=== PATIENT | male | born 1960 | race Caucasian/White ===

== ENCOUNTER 2017-03-06 08:54 | Day surgery (SDC) | payer BC, OTHER ==
[2017-03-05 12:18] VITALS: BMI 40.1
[2017-03-06] MEDS ORDERED: LIDOCAINE HCL/PF 2% SDV 5ML VIAL ONE (10:50)
[2017-03-06] MEDS ORDERED: PROPOFOL 20 ML ONE ×4 (10:50)
[2017-03-06 11:02] VITALS: TEMP 97.5
[2017-03-06 11:38] LABS: CALCIUM 8.6 mg/dL (8.5-10.1); COCKROFT - GAULT 141.85; CREATININE 1.1 mg/dL (0.7-1.3); MAGNESIUM 2.1 mg/dL (1.8-2.4)
[2017-03-06 11:55] VITALS: BP 125/78; PULSE 79
--- NOTE | 2017-03-07 14:13 | PATH ---
Surgical Pathology Report Patient Name: ROSSANA ROWAN [facility]. Rec. #: [id number] /Age/Gender: 1960 (Age: 56) / M Account: [id number] Location: U-ENDOSCOPY Taken: 03/06/2017 Received: 03/06/2017 Reported: 03/07/2017 Physicians: Aubrey Pisano D.O. Specimen(s) Received A: SIGMOID COLON POLYP @ 50 CM B: RECTAL POLYP Clinical History Family history of colon cancer, screening colonoscopy Colon polyps, diverticulosis, hemorrhoids Final Diagnosis A. COLON, SIGMOID, POLYP AT 50 CM, POLYPECTOMY: SERRATED ADENOMA. B. RECTUM, POLYP, POLYPECTOMY: TUBULAR ADENOMA. Comment: The completeness of resection is best assessed endoscopically. Electronically Signed Zi Corrales M.D. Gross Description A. Received in formalin, labeled "sigmoid colon polyp at 50 cm" is a hewitt, polypoid portion of soft tissue measuring 0.5 cm in greatest dimension. The specimen is submitted in toto in one cassette. B. Received in formalin labeled "rectal polyp" is a 0.9 x 0.7 x 0.5 cm hewitt, polypoid portion of soft tissue. The specimen is bisected and entirely submitted in one cassette. 03/06/201703/06/2017
== END 2017-03-06 12:05 | disposition home or self-care (01) ==
LOC: JASU-ENDO 08:54
PROVIDERS: ATTEND Internal Medicine Gastroenterology
PROC: 0DBP8ZX Excision of Rectum, Via Natural or Artificial Opening Endoscopic, Diagnostic (ICD-10-PCS; principal; 2017-03-06 10:00)
DX: Z12.11 Encounter for screening for malignant neoplasm of colon (principal); Z80.0 Family history of malignant neoplasm of digestive organs; K57.30 Diverticulosis of large intestine without perforation or abscess without bleeding; K62.1 Rectal polyp; D12.5 Benign neoplasm of sigmoid colon; K64.8 Other hemorrhoids
CPT/HCPCS: 36415; 80048; 83735; 88305-TC